=== PATIENT | male | born 1995 | race Two or more races ===

== ENCOUNTER 2023-08-03 14:20 | Emergency (ER) | payer MEDICAID, OTHER ==
[~2023-08-03] VITALS: Ht 175.3 cm; Wt 79.5 kg
[2023-08-03] MEDS ORDERED: EPIN0.1I11 IJ (16:14)
[2023-08-03 19:20] VITALS: BP 132/90; PULSE 90; RESP 18; TEMP 98.5; O2SAT 98
[2023-08-03] MEDS: DexAMETHasone SOD PHOS 10MG/1ML VIAL INJ IM ONE (19:24)
== END 2023-08-03 19:32 | disposition home or self-care (01) ==
LOC: EDBD 14:20 → ER 14:20
DX: R21 Rash and other nonspecific skin eruption (principal); R51.9 Headache, unspecified; F17.210 Nicotine dependence, cigarettes, uncomplicated; F15.90 Other stimulant use, unspecified, uncomplicated
CPT/HCPCS: 96372; 99283; J1100

== ENCOUNTER 2023-09-11 13:43 | Emergency (ER) | payer MEDICAID ==
[~2023-09-11] VITALS: Ht 175.3 cm; Wt 86.5 kg
[~2023-09-11 13:43] MED LIST: EPIN0.1I11 IJ
[2023-09-11 13:57] VITALS: PULSE 86; RESP 18; O2SAT 96
[2023-09-11] MEDS: SODIUM CHLORIDE 0.9% 1,000 ML IVB ONE (14:34)
[2023-09-11 15:42] VITALS: BP 132/73; PULSE 91; RESP 16; TEMP 98.6; O2SAT 100
[2023-09-11 17:18] LABS: Amphetamine Screen, Urine Neg (NEGATIVE); Barbiturate Scree,Urine Neg (NEGATIVE); Benzodiazephine Screen, Urine Neg (NEGATIVE)
[2023-09-11 17:19] LABS: Cannabinoid Screen, Urine Pos (NEGATIVE); Cocaine Screen, Urine Neg (NEGATIVE); Opiate Scree,Urine Neg (NEGATIVE); Phencyclidine Screen, Urine Neg (NEGATIVE)
== END 2023-09-11 16:10 | disposition home or self-care (01) ==
LOC: ER 13:43 → EDBD 13:43 → ER 16:10
DX: T40.411A Poisoning by fentanyl or fentanyl analogs, accidental (unintentional), initial encounter (principal); F32.9 Major depressive disorder, single episode, unspecified; F17.210 Nicotine dependence, cigarettes, uncomplicated; F15.90 Other stimulant use, unspecified, uncomplicated; R51.9 Headache, unspecified; Z79.899 Other long term (current) drug therapy; Y92.89 Other specified places as the place of occurrence of the external cause
CPT/HCPCS: 36415; 70450; 72125; 80307; 80320; 93005; 96360; 99284; J7030